=== PATIENT | male | born 1995 | race Caucasian/White ===

== ENCOUNTER 2018-02-17 00:08 | Emergency (ER) | payer SELFPAY ==
[~2018-02-17 00:08] MED LIST: Haloperidol Lactate 5 MG/ML SDV ONE
[2018-02-17] MEDS ORDERED: Haloperidol Lactate 5 MG/ML SDV IM ONE (00:31)
--- NOTE | 2018-02-17 00:54 | EDM.PDOC ---
ED HPI GENERAL MEDICAL PROBLEM - General Chief Complaint: Behavioral/Psych Stated Complaint: LAW Time Seen by Provider: 02/17/18 00:20 Source of Information: Reports: Patient, Family History Limitations: Reports: Altered Mental Status - History of Present Illness INITIAL COMMENTS - FREE TEXT/NARRATIVE: This is a 22-year-old male. He is on his way to his constant with his mother and father because he supposed to get some treatment for scoliosis. Apparently the police were called because he was having psychotic features yelling and telling his parents he is going to walk into traffic and he wouldn' t get out of the [employer]. The parents tell me that she had moved from [place] to [facility] for a job but he had a nervous breakdown at his job in November of this year. Since that time he's had acute psychotic breaks on at least 3 occasions with involuntary treatment 3 times since November. He is supposed to be on Depakote 503 tabs at night time and Resporal 3 mg 2 at night time but he has not been taking his medications for at least a week. Tonight the parents could not control him and that's why the police were called. When he comes into the ER he is handcuffed and he is acutely psychotic stating "I am the jugular vein", "Do you want to know what Sunday the sounds like? ", "Who are the Canadians here", "I want to kiss all the [place]" etc. He was very agitated and irritated with the police and they were having to carry him in from their car since he would not walk for them. ED ROS GENERAL - Review of Systems Review Of Systems: Unable To Obtain (Patient is acutely psychotic and will not answer questions.) - Physical Exam Exam: See Below Exam Limited By: Combative/Threatening General Appearance: Alert, WD/WN, Other (Acutely agitated) Eye Exam: Bilateral Eye: Normal Inspection Ears: Normal External Exam Nose: Normal Inspection Throat/Mouth: Normal Inspection, Normal Voice, No Airway Compromise Head Exam: Normocephalic Neck: Other (He moves his neck with no difficulty) Respiratory/Chest: No Respiratory Distress, Lungs Clear, Normal Breath Sounds Cardiovascular: Regular Rate, Rhythm, No Murmur, Tachycardia GI/Abdominal: Other (He did not like me examining him) Neuro Exam (Abbreviated): Alert, Confused, Disoriented, Other (Acutely psychotic with agitation and rambling speech) Back Exam: Full Range of Motion Extremities: Normal Inspection, Normal Range of Motion Psychiatric: Other (Psychotic) Skin Exam: Warm, Dry Course - Vital Signs Last Recorded V/S: Last Vital Signs Temp 97.4 F 02/17/18 00:26 Pulse 102 H 02/17/18 00:26 Resp 18 02/17/18 00:26 BP 114/86 02/17/18 00:26 Pulse Ox 91 L 02/17/18 00:26 - Orders/Labs/Meds Orders: Active Orders 24 hr Category Date Time Status DRUG SCREEN, URINE [URCHEM] Stat Lab 02/17/18 00:27 Ordered Labs: Laboratory Tests 02/17/18 02/17/18 02/17/18 Range/Units 00:41 00:41 00:41 WBC 12.37 H (4.23-9.07) K/mm3 RBC 4.81 (4.63-6.08) M/mm3 Hgb 14.6 (13.7-17.5) gm/L Hct 44.1 (40.1-51.0) % MCV 91.7 (79.0-92.2) fl MCH 30.4 (25.7-32.2) pg MCHC 33.1 (32.2-35.5) g/dl RDW Std Deviation 43.9 (35.1-43.9) fL Plt Count 325 (163-337) K/mm3 MPV 8.5 L (9.4-12.3) fl Neut % (Auto) 63.3 (34.0-67.9) % Lymph % (Auto) 20.9 L (21.8-53.1) % Towns % (Auto) 14.6 H (5.3-12.2) % Eos % (Auto) 0.7 L (0.8-7.0) Baso % (Auto) 0.2 (0.1-1.2) % Neut # (Auto) 7.83 H (1.78-5.38) K/mm3 Lymph # (Auto) 2.58 (1.32-3.57) K/mm3 Towns # (Auto) 1.81 H (0.30-0.82) K/mm3 Eos # (Auto) 0.09 (0.04-0.54) K/mm3 Baso # (Auto) 0.02 (0.01-0.08) K/mm3 Manual Slide Review Normal smear Sodium 145 (136-145) mEq/L Potassium 4.2 (3.5-5.1) mEq/L Chloride 105 (98-107) mEq/L Carbon Dioxide 28 (21-32) mEq/L Anion Gap 16.2 H (5-15) BUN 19 H (7-18) mg/dL Creatinine 1.1 (0.7-1.3) mg/dL Est Cr Clr Drug Dosing TNP Estimated GFR (MDRD) > 60 (>60) mL/min BUN/Creatinine Ratio 17.3 (14-18) Glucose 115 H (74-106) mg/dL Calcium 9.2 (8.5-10.1) mg/dL Total Bilirubin 0.3 (0.2-1.0) mg/dL AST 33 (15-37) U/L ALT 43 (16-63) U/L Alkaline Phosphatase 79 (46-116) U/L Total Protein 8.0 (6.4-8.2) g/dl Albumin 4.6 (3.4-5.0) g/dl Globulin 3.4 gm/dL Albumin/Globulin Ratio 1.4 (1-2) Salicylates 1.2 L (2.8-20) mg/dL Acetaminophen 0 L (10-30) ug/mL Valproic Acid < 3.0 L (50.0-100.0) ug/mL Ethyl Alcohol 0.00 (0.00) gm% Meds: Medications Discontinued Medications Generic Name Dose Route Start Last Admin Trade Name Maydson PRN Reason Stop Dose Admin Haloperidol Lactate 5 mg 02/17/18 00:31 Haldol IM 02/17/18 00:32 ONETIME ONE - Re-Assessments/Exams Free Text/Narrative Re-Assessment/Exam: 02/17/18 03:21 The patient has calmed down considerably after the Haldol injection. He is cordial to his parents now and he is sleeping peacefully. The parents tell me that if he gets a good night's sleep he is normally does well in the morning and they want to take him on to [place] where he can get definitive help. I will let him sleep and if he awakens in the morning and is coherent and not combative or threatening and the parents feel comfortable then I will let him go with his parents and they may continue on their journey to [place]. 02/17/18 06:38 The patient has been sleeping all morning and doing fine. We spoke to his parents and they want to come to the ER and she is doing okay they want to take him on to [place]. 02/17/18 06:50 The patient is behaving normally and talking normally now that his parents are here. He awoke we're able to take off his restraints and he is acting normal. The parents wanted to take him and continue on their way to [place] where they have made arrangements for his psychological needs. I stressed that if he starts acting strange again they need to take him to the nearest ER for reevaluation. 02/17/18 06:55 The parents again states they feel comfortable taking him at this time clearly seems to well around them. I will discharge him at this time with him to continue their journey to [place] so that he can get some help that he needs. Departure - Departure Time of Disposition: 06:46 Disposition: Home, Self-Care 01 Condition: Fair Clinical Impression: Acute psychosis, Personality disorder in adult Depression (emotion) Qualifiers: Depression Type: unspecified Qualified Code(s): F32.9 - Major depressive disorder, single episode, unspecified - Discharge Information *PRESCRIPTION DRUG MONITORING PROGRAM REVIEWED*: Not Applicable *COPY OF PRESCRIPTION DRUG MONITORING REPORT IN PATIENT JULIANE: Not Applicable Instructions: Psychosis Referrals: PCP,Not In Area [Primary Care Provider] - Forms: ED Department Discharge Additional Instructions: Continue with the Depakote and the risperidone as prescribed, as soon as you get your destination arrange for him to see someone regarding his condition and his psychological problems, it might be well to have him put in as an inpatient until his medications can be adjusted to make him feel better, if he starts having his problems again go to the nearest ER for evaluation, return to this ER if needed - My Orders Last 24 Hours: My Active Orders 02/17/18 00:27 DRUG SCREEN, URINE [URCHEM] Stat - Assessment/Plan Last 24 Hours: My Active Orders 02/17/18 00:27 DRUG SCREEN, URINE [URCHEM] Stat
[2018-02-17 01:44] LABS: ACETAMINOPHEN 0 ug/mL (10-30)
== END 2018-02-17 06:55 | disposition home or self-care (01) ==
LOC: JD.ED 00:08
DX: F23 Brief psychotic disorder (principal); F32.3 Major depressive disorder, single episode, severe with psychotic features; F60.9 Personality disorder, unspecified
CPT/HCPCS: 36415; 80053; 80164; 85025; 96372; 99285; G0480; J1630; 99284